=== PATIENT | male | born 1945 | race Caucasian/White ===

== ENCOUNTER 2021-03-02 16:13 | Inpatient (IN) ==
[2021-03-02 17:18] LABS: Hematocrit 31.5 % (37.5-50.1); Hemoglobin 10.2 g/dL (12.9-16.9); Mean Corpuscular HGB Conc 32.4 g/dL (31.6-35.5); Mean Corpuscular Hemoglobin 29.7 pg (28.0-33.3); Mean Corpuscular Volume 91.6 fL (83.0-100.0); Mean Platelet Volume 10.9 fL (9.4-12.4); Platelet Count 232 K/mcL (140-400); Red Blood Count 3.44 M/mcL (4.19-5.50); Red Cell Distribution Width 12.7 % (11.5-14.5)
[2021-03-02 17:19] LABS: Calcium 8.4 mg/dL (8.6-10.3); Potassium 4.3 mEq/L (3.5-5.1)
[2021-03-02 17:20] LABS: Troponin I 0.03 ng/mL (< 0.04)
[2021-03-02 17:29] LABS: Bilirubin,Urine Negative (Negative); Blood,Urine Negative (Negative); Clarity,Urine Clear (Clear); Color,Urine Yellow (Yellow); Glucose,Urine (UA) 100 mg/dL (Normal); Hyaline Casts,Urine Few per lpf (None Seen); Ketones,Urine Negative (Negative); Leukocyte Esterase,Urine Negative (Negative); Mucus,Urine Few per lpf (None-Few); Nitrite,Urine Negative (Negative); PH,Urine 5.5 pH Units (5.0-8.0); Protein,Urine 100 mg/dL (Neg-Trace); RBC,Urine 0-3 per hpf (0-3); Specific Gravity,Urine 1.023 (1.010-1.025); Squamous Epithelial Cell,Urine Few per hpf (None-Few); Urobilinogen,Urine Normal (Normal); WBC,Urine 0-3 per hpf (0-3)
[2021-03-02] MEDS ORDERED: Melatonin 3 MG TABLET PO PRN (18:35)
[2021-03-02] MEDS ORDERED: Ondansetron 4 MG/2 ML VIAL IVP PRN (18:35)
[2021-03-02] MEDS ORDERED: Acetaminophen 325 MG TABLET PO PRN (18:35)
[2021-03-02] MEDS ORDERED: Perflutren Lipid Microsphere 1.3 ML in 0.9 % Sodium Chloride 8.7 ML IVP PRN (18:37)
[2021-03-02 19:01] LABS: Chol/HDL Ratio 5.4 (0-4.9)
[2021-03-02] MEDS ORDERED: Dextrose Gel 15 GM/37.5 ML TUBE PO PRN ×2 (19:10)
[2021-03-02] MEDS ORDERED: *HR* Dextrose 50 % in Water (Vial) 50 ML VIAL IVP PRN (19:10)
[2021-03-02] MEDS ORDERED: D5% in Water 1,000 ML IVC PRN (19:10)
[2021-03-02 19:19] LABS: Estimated Average Glucose 203 mg/dl; Hemoglobin A1C 8.7 %
[2021-03-02] MEDS ORDERED: Ringers Solution, Lactated 1,000 ML IVC SCH (19:30)
[2021-03-02] MEDS: Insulin LISPRO 300 UNITS/3 ML VIAL SUBQ SCH ×2 (20:28→21:13)
[2021-03-02] MEDS: carvediloL 6.25 MG TABLET PO SCH (21:12)
[2021-03-03 03:34] LABS: Hemoglobin 9.5 g/dL (12.9-16.9); Mean Corpuscular HGB Conc 32.8 g/dL (31.6-35.5); Mean Corpuscular Hemoglobin 29.8 pg (28.0-33.3); Mean Corpuscular Volume 90.9 fL (83.0-100.0); Mean Platelet Volume 11.1 fL (9.4-12.4); Platelet Count 222 K/mcL (140-400); Red Blood Count 3.19 M/mcL (4.19-5.50); Red Cell Distribution Width 12.8 % (11.5-14.5); White Blood Count 5.6 K/mcL (4.3-11.1)
[2021-03-03 03:48] LABS: Calcium 8.4 mg/dL (8.6-10.3); Magnesium 1.1 mg/dL (1.6-2.6); Potassium 3.8 mEq/L (3.5-5.1)
[2021-03-03] MEDS: *HR* Enoxaparin 40 MG/0.4 ML SYRINGE SQ SCH (06:11)
[2021-03-03] MEDS ORDERED: hydroCHLOROthiazide 25 MG TABLET PO SCH (09:00)
[2021-03-03] MEDS ORDERED: Aspirin Enteric Coated 81 MG Tablet PO SCH (09:00)
[2021-03-03] MEDS: Insulin LISPRO 300 UNITS/3 ML VIAL SUBQ SCH ×4 (09:05→20:48)
[2021-03-03] MEDS: carvediloL 6.25 MG TABLET PO SCH ×2 (09:05→17:17)
[2021-03-03] MEDS: lisinopriL 20 MG TABLET PO SCH ×2 (09:06→20:48)
[2021-03-04 04:22] LABS: Calcium 9.2 mg/dL (8.6-10.3); Magnesium 1.9 mg/dL (1.6-2.6); Phosphorous 3.7 mg/dL (2.7-4.5); Potassium 4.2 mEq/L (3.5-5.1)
[2021-03-04] MEDS: *HR* Enoxaparin 40 MG/0.4 ML SYRINGE SQ SCH (05:30)
[2021-03-04] MEDS ORDERED: Sodium Bicarbonate 75 MEQ in 0.45 % Sodium Chloride 1,000 ML IVC SCH (08:15)
[2021-03-04] MEDS: Insulin LISPRO 300 UNITS/3 ML VIAL SUBQ SCH ×4 (09:29→20:41)
[2021-03-04] MEDS: Aspirin Enteric Coated 325 MG Tablet PO SCH (09:30)
[2021-03-04] MEDS: carvediloL 6.25 MG TABLET PO SCH ×2 (09:30→17:51)
[2021-03-04] MEDS: calcitrioL 0.25 MCG CAPSULE PO SCH (09:30)
[2021-03-04] MEDS ORDERED: amLODIPine 5 MG TABLET PO SCH (12:00)
[2021-03-04] MEDS ORDERED: Insulin LISPRO 300 UNITS/3 ML VIAL SUBQ SCH (12:00)
[2021-03-04] MEDS ORDERED: Insulin DETEMIR 100 UNIT/ML X5UNITS SUBQ SCH (21:00)
[2021-03-05] MEDS: *HR* Enoxaparin 40 MG/0.4 ML SYRINGE SQ SCH (05:15)
[2021-03-05 06:42] LABS: Calcium 9.3 mg/dL (8.6-10.3); Magnesium 1.7 mg/dL (1.6-2.6); Phosphorous 4.5 mg/dL (2.7-4.5); Potassium 3.7 mEq/L (3.5-5.1)
[2021-03-05 07:55] VITALS: BP 182/67
[2021-03-05] MEDS: Insulin LISPRO 300 UNITS/3 ML VIAL SUBQ SCH (08:07)
[2021-03-05] MEDS: calcitrioL 0.25 MCG CAPSULE PO SCH (08:07)
[2021-03-05] MEDS: Aspirin Enteric Coated 325 MG Tablet PO SCH (08:07)
[2021-03-05] MEDS: carvediloL 6.25 MG TABLET PO SCH (08:07)
[2021-03-05] MEDS ORDERED: amLODIPine 5 MG TABLET PO SCH (09:00)
[2021-03-06] MEDS ORDERED: *HR* Enoxaparin 30 MG/0.3 ML SYRINGE SQ SCH (06:00)
== END 2021-03-05 11:20 | disposition home or self-care (01) | DRG 65 ==
LOC: 3BNU 16:13 → EMEROOARM 16:13 → SUATTDRO 18:35 → 3BNU 19:54
PROVIDERS: ADMIT Internal Medicine; ATTEND Internal Medicine

== ENCOUNTER 2021-10-30 16:06 | Inpatient (IN) ==
[2021-10-30] MEDS ORDERED: Ondansetron 4 MG/2 ML VIAL IVP ONE (18:10)
[2021-10-30] MEDS ORDERED: 0.9 % Sodium Chloride 500 ML IV ONE (18:11)
[2021-10-30 19:03] LABS: Influenza A PCR Negative (Negative); Influenza B PCR Negative (Negative); Resp. Syncytial Virus PCR Negative (Negative)
[2021-10-30 19:08] LABS: SARS-CoV-2 by PCR (In House) Positive (Negative)
[2021-10-30 19:48] LABS: Hematocrit 29.8 % (37.5-50.1); Hemoglobin 9.7 g/dL (12.9-16.9); Immature Granulocytes % 0.6 % (0-4); Immature Platelets 3.7 % (1.1-6.1); Lymphocytes # 0.6 K/mcL (0.6-4.6); Mean Corpuscular HGB Conc 32.6 g/dL (31.6-35.5); Mean Corpuscular Hemoglobin 28.9 pg (28.0-33.3); Mean Corpuscular Volume 88.7 fL (83.0-100.0); Mean Platelet Volume 11.3 fL (9.4-12.4); Monocytes # 0.3 K/mcL (0.0-1.3); Monocytes % 9.1 %; Neutrophils # 2.5 K/mcL (1.6-8.9); Platelet Count 155 K/mcL (140-400); Red Blood Count 3.36 M/mcL (4.19-5.50); Segmented Neutrophils % 73.3 %; White Blood Count 3.4 K/mcL (4.3-11.1)
[2021-10-30 20:10] LABS: Albumin 3.2 g/dL (3.5-5.7); Bilirubin,Direct 0.2 mg/dL (0.0-0.2); Bilirubin,Indirect 0.4 mg/dL (0.0-1.0); Bilirubin,Total 0.6 mg/dL (0.3-1.0); Calcium 8.3 mg/dL (8.6-10.3); Globulin 3.1 g/dL (2.4-3.5); Magnesium 1.2 mg/dL (1.6-2.6); Phosphorous 4.2 mg/dL (2.7-4.5); Potassium 3.7 mEq/L (3.5-5.1); Total Protein 6.3 g/dL (6.4-8.9); Troponin I 0.32 ng/mL (< 0.04)
[2021-10-30] MEDS ORDERED: Aspirin 325 MG TABLET PO ONE (20:14)
[2021-10-30 20:18] LABS: Platelet Estimate Normal (Normal)
[2021-10-30] MEDS ORDERED: *HR* Heparin 5,000 UNIT/ML VIAL IVP PRN ×2 (20:25)
[2021-10-30] MEDS ORDERED: *HR* Heparin 5,000 UNIT/ML VIAL IVP ONE (20:25)
[2021-10-30] MEDS ORDERED: Naloxone 0.4 MG/ML INJ IVP PRN (20:57)
[2021-10-30] MEDS ORDERED: *HR* Promethazine 25 MG/ML VIAL IM PRN (20:57)
[2021-10-30] MEDS ORDERED: Saliva Stimulant 44.3ml BOTTLE PO PRN (21:01)
[2021-10-30] MEDS ORDERED: Artificial Tears SOLN 15 ML BOTTLE BOTH EYES PRN (21:01)
[2021-10-30] MEDS ORDERED: Saline Nasal Spray 44 ML BOTTLE NS PRN (21:01)
[2021-10-30] MEDS ORDERED: Chloraseptic Spray 177 ML BOTTLE MM PRN (21:01)
[2021-10-30 21:35] LABS: Bilirubin,Urine Negative (Negative); Blood,Urine Moderate (Negative); Clarity,Urine Clear (Clear); Color,Urine Yellow (Yellow); Glucose,Urine (UA) Normal (Normal); Ketones,Urine Negative (Negative); Leukocyte Esterase,Urine Negative (Negative); Nitrite,Urine Negative (Negative); PH,Urine 5.5 pH Units (5.0-8.0); Protein,Urine >=300 mg/dL (Neg-Trace); Specific Gravity,Urine >= 1.030 (1.010-1.025); Urobilinogen,Urine Normal (Normal)
[2021-10-30 21:39] LABS: Hyaline Casts,Urine Moderate per lpf (None Seen); Mucus,Urine Few per lpf (None-Few); RBC,Urine 0-3 per hpf (0-3); WBC,Urine 0-3 per hpf (0-3)
[2021-10-30] MEDS ORDERED: Dextrose Gel 15 GM/37.5 ML TUBE PO PRN ×2 (21:43)
[2021-10-30] MEDS ORDERED: D5% in Water 1,000 ML IVC PRN (21:43)
[2021-10-30] MEDS: Heparin 25,000UNIT/250ML 1/2NS 25,000 UNIT/250 ML IV.SOLN IVC SCH (21:45)
[2021-10-30] MEDS ORDERED: Perflutren Lipid Microsphere 1.3 ML in 0.9 % Sodium Chloride 8.7 ML IVP PRN (22:49)
[2021-10-30] MEDS ORDERED: Furosemide 40 MG/4 ML VIAL IVP ONE (22:51)
[2021-10-31] MEDS: Ipratropium 1 PUFF INHALER IH SCH ×6 (00:25→19:55)
[2021-10-31 01:07] LABS: Basophils % 0.3 %; Hematocrit 27.7 % (37.5-50.1); Hemoglobin 8.7 g/dL (12.9-16.9); Immature Granulocytes % 0.3 % (0-4); Lymphocytes # 0.6 K/mcL (0.6-4.6); Lymphocytes % 18.7 %; Mean Corpuscular HGB Conc 31.4 g/dL (31.6-35.5); Mean Corpuscular Hemoglobin 28.4 pg (28.0-33.3); Mean Corpuscular Volume 90.5 fL (83.0-100.0); Mean Platelet Volume 11.3 fL (9.4-12.4); Monocytes # 0.3 K/mcL (0.0-1.3); Monocytes % 9.7 %; Neutrophils # 2.4 K/mcL (1.6-8.9); Platelet Count 147 K/mcL (140-400); Red Blood Count 3.06 M/mcL (4.19-5.50); Red Cell Distribution Width 14.1 % (11.5-14.5); White Blood Count 3.3 K/mcL (4.3-11.1)
[2021-10-31 01:14] LABS: INR 1.2
[2021-10-31 01:31] LABS: Albumin/Globulin Ratio 1.1 (1.1-2.2); Bilirubin,Total 0.6 mg/dL (0.3-1.0); Calcium 7.9 mg/dL (8.6-10.3); Chol/HDL Ratio 4.4 (0-4.9); Globulin 2.8 g/dL (2.4-3.5); Magnesium 1.5 mg/dL (1.6-2.6); Phosphorous 4.1 mg/dL (2.7-4.5); Potassium 3.3 mEq/L (3.5-5.1); Total Protein 5.8 g/dL (6.4-8.9); Troponin I 0.31 ng/mL (< 0.04)
[2021-10-31 02:48] LABS: Thyroid Stimulating Hormone 1.08 mcIU/mL (0.340-5.600)
[2021-10-31] MEDS: hydrALAZINE 25 MG TABLET PO SCH ×2 (05:48→13:18)
[2021-10-31] MEDS ORDERED: carvediloL 6.25 MG TABLET PO SCH (08:00)
[2021-10-31 08:20] LABS: Estimated Average Glucose 217 mg/dl; Hemoglobin A1C 9.2 %
[2021-10-31] MEDS: Insulin LISPRO 300 UNITS/3 ML VIAL SUBQ SCH ×3 (11:17→18:53)
[2021-10-31] MEDS: carvediloL 6.25 MG TABLET PO SCH ×2 (11:24→16:11)
[2021-10-31] MEDS: Doxycycline 100 MG CAPSULE PO SCH ×2 (11:24→21:52)
[2021-10-31] MEDS: Multivit/Ca/Min/Fe/FA 1 TAB TABLET PO SCH (11:24)
[2021-10-31] MEDS: Aspirin 81 MG TAB.CHEW PO SCH (11:25)
[2021-10-31] MEDS: cefTRIAXone 1,000 MG in Water for inj. (sterile) 10 ML IVP SCH (11:25)
[2021-10-31] MEDS: Furosemide 20 MG/2 ML VIAL IVP SCH ×2 (11:25→16:11)
[2021-10-31] MEDS: Cholecalciferol (D-3) 1,000 UNIT (25MCG) TABLET PO SCH (11:25)
[2021-10-31] MEDS: Albumin 25% 25gram/100mL 25 GM/100 ML IV.SOLN IVPB SCH ×2 (13:14→21:51)
[2021-10-31] MEDS ORDERED: 0.9 % Sodium Chloride 1,000 ML IVC SCH (14:45)
[2021-10-31] MEDS: Acetaminophen 325 MG TABLET PO PRN (16:11)
[2021-10-31] MEDS: Chlorhexidine Rinse 15 ML MOUTHWASH MM SCH ×2 (19:50→21:52)
[2021-11-01] MEDS: Ipratropium 1 PUFF INHALER IH SCH ×7 (00:18→23:37)
[2021-11-01] MEDS: hydrALAZINE 25 MG TABLET PO SCH ×4 (03:09→21:23)
[2021-11-01] MEDS: *HR* HYDROcodone/Acet 5/325 mg TABLET PO PRN ×2 (03:45→21:23)
[2021-11-01] MEDS: *HR* Dextrose 50 % in Water (Syg) 50 ML SYRINGE IVP PRN (05:40)
[2021-11-01] MEDS: Heparin 25,000 UNIT/250 ML 25,000 UNIT/250 ML IV.SOLN IVC SCH (05:44)
[2021-11-01 07:32] LABS: Heparin anti-factor XA UFH 0.69 IU/mL (0.30-0.70)
[2021-11-01 07:49] LABS: Hematocrit 24.1 % (37.5-50.1); Hemoglobin 7.8 g/dL (12.9-16.9); Mean Corpuscular HGB Conc 32.4 g/dL (31.6-35.5); Mean Corpuscular Hemoglobin 28.7 pg (28.0-33.3); Mean Corpuscular Volume 88.6 fL (83.0-100.0); Mean Platelet Volume 11.1 fL (9.4-12.4); Platelet Count 164 K/mcL (140-400); Red Blood Count 2.72 M/mcL (4.19-5.50); Red Cell Distribution Width 14.2 % (11.5-14.5); White Blood Count 4.1 K/mcL (4.3-11.1)
[2021-11-01 07:54] LABS: Potassium 3.1 mEq/L (3.5-5.1)
[2021-11-01] MEDS: Doxycycline 100 MG CAPSULE PO SCH ×2 (09:26→21:23)
[2021-11-01] MEDS: Insulin LISPRO 300 UNITS/3 ML VIAL SUBQ SCH ×3 (09:26→16:42)
[2021-11-01] MEDS: Multivit/Ca/Min/Fe/FA 1 TAB TABLET PO SCH (09:26)
[2021-11-01] MEDS: Cholecalciferol (D-3) 1,000 UNIT (25MCG) TABLET PO SCH (09:27)
[2021-11-01] MEDS: Aspirin 81 MG TAB.CHEW PO SCH (09:27)
[2021-11-01] MEDS: carvediloL 6.25 MG TABLET PO SCH ×2 (09:27→16:28)
[2021-11-01] MEDS: Chlorhexidine Rinse 15 ML MOUTHWASH MM SCH ×2 (09:27→21:38)
[2021-11-01] MEDS: cefTRIAXone 1,000 MG in Water for inj. (sterile) 10 ML IVP SCH (09:27)
[2021-11-01 11:25] LABS: Folate 18.9 ng/mL (3.0-16.0)
[2021-11-01] MEDS ORDERED: Iron Sucrose Complex 400 MG in 0.9 % Sodium Chloride 250 ML IVPB ONE (12:28)
[2021-11-01] MEDS: Acetaminophen 325 MG TABLET PO PRN (14:00)
[2021-11-01 15:26] LABS: Heparin anti-factor XA UFH 0.62 IU/mL (0.30-0.70)
[2021-11-01 15:27] LABS: INR 1.2; Prothrombin Time 13.1 Seconds (9.4-12.1)
[2021-11-01] MEDS: Albumin 25% 25gram/100mL 25 GM/100 ML IV.SOLN IVPB SCH ×2 (16:28→21:24)
[2021-11-01] MEDS ORDERED: Warfarin perPT PO PRN (18:00)
[2021-11-01] MEDS ORDERED: *HR* Warfarin 5 MG TABLET PO ONE (18:00)
[2021-11-01] MEDS: Melatonin 3 MG TABLET PO PRN (21:23)
[2021-11-02] MEDS: Ipratropium 1 PUFF INHALER IH SCH ×6 (03:30→23:45)
[2021-11-02] MEDS: Albumin 25% 25gram/100mL 25 GM/100 ML IV.SOLN IVPB SCH (05:43)
[2021-11-02] MEDS: *HR* HYDROcodone/Acet 5/325 mg TABLET PO PRN ×3 (05:43→22:01)
[2021-11-02] MEDS: hydrALAZINE 25 MG TABLET PO SCH ×3 (05:43→19:54)
[2021-11-02 06:37] LABS: Hematocrit 24.2 % (37.5-50.1); Hemoglobin 7.4 g/dL (12.9-16.9); Mean Corpuscular HGB Conc 30.6 g/dL (31.6-35.5); Mean Corpuscular Hemoglobin 27.7 pg (28.0-33.3); Mean Corpuscular Volume 90.6 fL (83.0-100.0); Platelet Count 183 K/mcL (140-400); Red Blood Count 2.67 M/mcL (4.19-5.50); Red Cell Distribution Width 14.5 % (11.5-14.5); White Blood Count 5.5 K/mcL (4.3-11.1)
[2021-11-02 06:47] LABS: INR 1.3; Prothrombin Time 14.7 Seconds (9.4-12.1)
[2021-11-02] MEDS: cefTRIAXone 1,000 MG in Water for inj. (sterile) 10 ML IVP SCH (09:01)
[2021-11-02] MEDS: Multivit/Ca/Min/Fe/FA 1 TAB TABLET PO SCH (09:02)
[2021-11-02] MEDS: Aspirin 81 MG TAB.CHEW PO SCH (09:02)
[2021-11-02] MEDS: Cholecalciferol (D-3) 1,000 UNIT (25MCG) TABLET PO SCH (09:02)
[2021-11-02] MEDS: Doxycycline 100 MG CAPSULE PO SCH ×2 (09:02→19:54)
[2021-11-02] MEDS: carvediloL 6.25 MG TABLET PO SCH ×2 (09:02→17:15)
[2021-11-02] MEDS: Chlorhexidine Rinse 15 ML MOUTHWASH MM SCH (09:03)
[2021-11-02] MEDS: Insulin LISPRO 300 UNITS/3 ML VIAL SUBQ SCH ×3 (09:09→17:19)
[2021-11-02 09:55] LABS: Calcium 8.8 mg/dL (8.6-10.3); Potassium 3.1 mEq/L (3.5-5.1)
[2021-11-02] MEDS ORDERED: *HR* Warfarin 2.5 MG TABLET PO ONE (18:00)
[2021-11-02] MEDS: Acetaminophen 325 MG TABLET PO PRN (19:54)
[2021-11-02] MEDS: Melatonin 3 MG TABLET PO PRN (19:54)
[2021-11-03 02:46] LABS: INR 2.4; Prothrombin Time 26.3 Seconds (9.4-12.1)
[2021-11-03] MEDS: *HR* HYDROcodone/Acet 5/325 mg TABLET PO PRN ×2 (02:53→07:56)
[2021-11-03] MEDS: Ipratropium 1 PUFF INHALER IH SCH ×6 (04:02→23:07)
[2021-11-03 04:06] LABS: Albumin/Globulin Ratio 1.6 (1.1-2.2); Bilirubin,Total 0.9 mg/dL (0.3-1.0); Calcium 9.1 mg/dL (8.6-10.3); Globulin 2.5 g/dL (2.4-3.5); Potassium 4.8 mEq/L (3.5-5.1); Total Protein 6.5 g/dL (6.4-8.9)
[2021-11-03 04:41] LABS: Basophils % 0.1 %; Hematocrit 22.9 % (37.5-50.1); Hemoglobin 7.2 g/dL (12.9-16.9); Immature Granulocytes % 2.3 % (0-4); Lymphocytes # 0.9 K/mcL (0.6-4.6); Mean Corpuscular HGB Conc 31.4 g/dL (31.6-35.5); Mean Corpuscular Hemoglobin 28.8 pg (28.0-33.3); Mean Corpuscular Volume 91.6 fL (83.0-100.0); Mean Platelet Volume 11.2 fL (9.4-12.4); Monocytes # 0.6 K/mcL (0.0-1.3); Nucleated Red Blood Cells 0.3 /100 WBC (0); Platelet Count 290 K/mcL (140-400); Red Cell Distribution Width 14.5 % (11.5-14.5); Segmented Neutrophils % 82.6 %
[2021-11-03] MEDS ORDERED: 0.9 % Sodium Chloride 500 ML IVC ONE (04:52)
[2021-11-03 04:53] LABS: Neutrophils # 8.3 K/mcL (1.6-8.9)
[2021-11-03] MEDS ORDERED: 0.9 % Sodium Chloride 500 ML ONE (05:02)
[2021-11-03 05:12] LABS: Burr Cells 1+ (Not Present); Platelet Estimate Normal (Normal); Poikilocytosis 1+ (Not Present)
[2021-11-03] MEDS ORDERED: *HR* HYDROmorphone (PF) 1 MG/ML SYRINGE IVP PRN (05:27)
[2021-11-03] MEDS: hydrALAZINE 25 MG TABLET PO SCH ×3 (05:31→21:24)
[2021-11-03] MEDS: Acetaminophen 325 MG TABLET PO PRN (05:31)
[2021-11-03] MEDS: *HR* HYDROmorphone (PF) 1 MG/ML SYRINGE IVP PRN ×2 (06:05→23:14)
[2021-11-03] MEDS: Heparin 25,000 UNIT/250 ML 25,000 UNIT/250 ML IV.SOLN IVC SCH ×2 (07:31→07:32)
[2021-11-03] MEDS: Heparin 25,000UNIT/250ML 1/2NS 25,000 UNIT/250 ML IV.SOLN IVC SCH (07:37)
[2021-11-03] MEDS: Insulin LISPRO 300 UNITS/3 ML VIAL SUBQ SCH ×3 (07:54→17:14)
[2021-11-03] MEDS: cefTRIAXone 1,000 MG in Water for inj. (sterile) 10 ML IVP SCH (07:55)
[2021-11-03] MEDS: Cholecalciferol (D-3) 1,000 UNIT (25MCG) TABLET PO SCH (08:07)
[2021-11-03] MEDS: Aspirin 81 MG TAB.CHEW PO SCH (08:08)
[2021-11-03] MEDS: Multivit/Ca/Min/Fe/FA 1 TAB TABLET PO SCH (08:08)
[2021-11-03] MEDS: carvediloL 6.25 MG TABLET PO SCH ×2 (08:08→16:36)
[2021-11-03] MEDS: Doxycycline 100 MG CAPSULE PO SCH ×2 (08:08→21:23)
[2021-11-03] MEDS ORDERED: 0.9 % Sodium Chloride 1,000 ML IVC ONE (16:45)
[2021-11-03] MEDS: Piperacillin/Tazobactam 3.375 GM in 0.9 % Sodium Chloride Mini Bag 100 ML IVPB SCH (17:15)
[2021-11-04] MEDS: Piperacillin/Tazobactam 3.375 GM in 0.9 % Sodium Chloride Mini Bag 100 ML IVPB SCH ×3 (01:17→20:11)
[2021-11-04] MEDS: Ipratropium 1 PUFF INHALER IH SCH ×6 (03:11→23:32)
[2021-11-04 04:05] LABS: Prothrombin Time 42.2 Seconds (9.4-12.1)
[2021-11-04 04:06] LABS: INR 3.8
[2021-11-04] MEDS: hydrALAZINE 25 MG TABLET PO SCH ×4 (06:19→23:16)
[2021-11-04] MEDS: *HR* HYDROmorphone (PF) 1 MG/ML SYRINGE IVP PRN ×4 (07:48→23:29)
[2021-11-04] MEDS: Aspirin 81 MG TAB.CHEW PO SCH (07:59)
[2021-11-04] MEDS: Doxycycline 100 MG CAPSULE PO SCH ×2 (07:59→23:16)
[2021-11-04] MEDS: Insulin LISPRO 300 UNITS/3 ML VIAL SUBQ SCH ×3 (07:59→16:32)
[2021-11-04] MEDS: Cholecalciferol (D-3) 1,000 UNIT (25MCG) TABLET PO SCH (08:00)
[2021-11-04] MEDS: Multivit/Ca/Min/Fe/FA 1 TAB TABLET PO SCH (08:00)
[2021-11-04] MEDS: carvediloL 6.25 MG TABLET PO SCH ×2 (08:07→16:32)
[2021-11-04 09:39] LABS: Basophils % 0.1 %; Hematocrit 21.3 % (37.5-50.1); Hemoglobin 6.5 g/dL (12.9-16.9); Immature Granulocytes % 1.8 % (0-4); Lymphocytes # 0.5 K/mcL (0.6-4.6); Lymphocytes % 3.7 %; Mean Corpuscular HGB Conc 30.5 g/dL (31.6-35.5); Mean Corpuscular Hemoglobin 27.7 pg (28.0-33.3); Mean Corpuscular Volume 90.6 fL (83.0-100.0); Mean Platelet Volume 10.8 fL (9.4-12.4); Monocytes # 0.8 K/mcL (0.0-1.3); Monocytes % 5.8 %; Neutrophils # 12.6 K/mcL (1.6-8.9); Nucleated Red Blood Cells 0.5 /100 WBC (0); Platelet Count 310 K/mcL (140-400); Red Blood Count 2.35 M/mcL (4.19-5.50); Red Cell Distribution Width 14.8 % (11.5-14.5); Segmented Neutrophils % 88.6 %; White Blood Count 14.2 K/mcL (4.3-11.1)
[2021-11-04 09:59] LABS: Calcium 9.1 mg/dL (8.6-10.3); Potassium 4.5 mEq/L (3.5-5.1)
[2021-11-04] MEDS ORDERED: D5% in Water 1,000 ML IVC SCH (12:15)
[2021-11-04] MEDS ORDERED: D5% in Water 500 ML IVC SCH (12:45)
[2021-11-04] MEDS: 0.9 % Sodium Chloride 1,000 ML ONE ×2 (13:32→13:42)
[2021-11-04] MEDS ORDERED: 0.9 % Sodium Chloride 250 ML ONE ×2 (14:25→17:32)
[2021-11-05] MEDS: Ipratropium 1 PUFF INHALER IH SCH ×6 (03:33→23:55)
[2021-11-05] MEDS: Piperacillin/Tazobactam 3.375 GM in 0.9 % Sodium Chloride Mini Bag 100 ML IVPB SCH ×2 (05:38→14:07)
[2021-11-05] MEDS: hydrALAZINE 25 MG TABLET PO SCH ×3 (06:47→20:07)
[2021-11-05] MEDS ORDERED: *HR* LORazepam 2 MG/ML VIAL IVP ONE ×2 (09:59→10:37)
[2021-11-05] MEDS: Furosemide 40 MG/4 ML VIAL IVP ONE ×2 (10:13→13:56)
[2021-11-05] MEDS ORDERED: Morphine Sulfate 2 MG/ML SYRINGE IVP ONE (10:15)
[2021-11-05 10:34] LABS: VBG HCO3 13 mEq/L (21-27); VBG PCO2 27 mmHg (41-51); VBG PH 7.29 pH Units (7.32-7.42); VBG PO2 41 mmHg (25-50)
[2021-11-05 10:34] LABS: ABG Base Excess -12 mEq/L (-2 to 3); ABG HCO3 11 mEq/L (21-27); ABG Oxygen Saturation 97 % (95-98); ABG PCO2 18 mmHg (35-45); ABG PH 7.39 pH Units (7.32-7.45); ABG PO2 83 mmHg (85-104); ABG TCO2 12 mEq/L (20-26); Blood Gas Modality BiLevel
[2021-11-05 10:38] LABS: Basophils # 0.1 K/mcL (0.0-0.2); Basophils % 0.3 %; Hematocrit 29.1 % (37.5-50.1); Immature Granulocytes % 2.9 % (0-4); Lymphocytes # 0.8 K/mcL (0.6-4.6); Mean Corpuscular HGB Conc 30.9 g/dL (31.6-35.5); Mean Corpuscular Hemoglobin 28.8 pg (28.0-33.3); Mean Platelet Volume 11.4 fL (9.4-12.4); Monocytes # 1.1 K/mcL (0.0-1.3); Monocytes % 6.1 %; Neutrophils # 16.2 K/mcL (1.6-8.9); Nucleated Red Blood Cells 1.9 /100 WBC (0); Platelet Count 399 K/mcL (140-400); Red Blood Count 3.13 M/mcL (4.19-5.50); Red Cell Distribution Width 15.3 % (11.5-14.5); Segmented Neutrophils % 86.7 %; White Blood Count 18.6 K/mcL (4.3-11.1)
[2021-11-05 10:55] LABS: Calcium 9.5 mg/dL (8.6-10.3); Magnesium 2.3 mg/dL (1.6-2.6); Phosphorous 6.1 mg/dL (2.7-4.5); Potassium 5.4 mEq/L (3.5-5.1)
[2021-11-05] MEDS ORDERED: Insulin Human Regular 10 UNIT in 0.9 % Sodium Chloride 10 ML IV ONE (11:04)
[2021-11-05 11:09] LABS: INR 4.4; Prothrombin Time 48.4 Seconds (9.4-12.1)
[2021-11-05] MEDS ORDERED: Perflutren Lipid Microsphere 1.3 ML in 0.9 % Sodium Chloride 8.7 ML IVP PRN (11:18)
[2021-11-05] MEDS ORDERED: Furosemide 40 MG/4 ML VIAL IVP ONE (11:23)
[2021-11-05] MEDS: Insulin LISPRO 300 UNITS/3 ML VIAL SUBQ SCH ×3 (11:48→16:04)
[2021-11-05] MEDS: D5% in Water 1,000 ML IVC SCH ×2 (11:51→20:07)
[2021-11-05 12:49] LABS: Troponin I 7.63 ng/mL (< 0.04)
[2021-11-05] MEDS: Aspirin 81 MG TAB.CHEW PO SCH (13:16)
[2021-11-05] MEDS: carvediloL 6.25 MG TABLET PO SCH ×2 (13:16→17:28)
[2021-11-05] MEDS: Cholecalciferol (D-3) 1,000 UNIT (25MCG) TABLET PO SCH (13:17)
[2021-11-05] MEDS: Multivit/Ca/Min/Fe/FA 1 TAB TABLET PO SCH (13:17)
[2021-11-05] MEDS: Doxycycline 100 MG CAPSULE PO SCH ×2 (13:17→20:09)
[2021-11-05] MEDS ORDERED: Morphine Sulfate 2 MG/ML SYRINGE IVP PRN (14:00)
[2021-11-05 14:24] LABS: Albumin 3.9 g/dL (3.5-5.7); Albumin/Globulin Ratio 1.3 (1.1-2.2); Bilirubin,Direct 0.3 mg/dL (0.0-0.2); Bilirubin,Indirect 0.7 mg/dL (0.0-1.0); Total Protein 6.9 g/dL (6.4-8.9)
[2021-11-05] MEDS ORDERED: SODIUM ZIRCONIUM CYCLOSILICATE 5 GM POWD.PACK PO ONE (15:18)
[2021-11-05] MEDS: *HR* LORazepam 2 MG/ML VIAL IVP PRN ×2 (17:01→21:36)
[2021-11-06 01:49] LABS: Sodium, Urine 104.6 mEq/L
[2021-11-06 02:28] LABS: Basophils % 0.2 %; Hematocrit 28.2 % (37.5-50.1); Hemoglobin 9.2 g/dL (12.9-16.9); Immature Granulocytes % 1.9 % (0-4); Lymphocytes # 0.6 K/mcL (0.6-4.6); Lymphocytes % 3.6 %; Mean Corpuscular HGB Conc 32.6 g/dL (31.6-35.5); Mean Corpuscular Hemoglobin 29.5 pg (28.0-33.3); Mean Corpuscular Volume 90.4 fL (83.0-100.0); Mean Platelet Volume 11.3 fL (9.4-12.4); Monocytes # 0.8 K/mcL (0.0-1.3); Monocytes % 4.9 %; Neutrophils # 15.2 K/mcL (1.6-8.9); Nucleated Red Blood Cells 2.4 /100 WBC (0); Platelet Count 319 K/mcL (140-400); Red Blood Count 3.12 M/mcL (4.19-5.50); Red Cell Distribution Width 14.9 % (11.5-14.5); Segmented Neutrophils % 89.4 %
[2021-11-06 02:46] LABS: Prothrombin Time 59.5 Seconds (9.4-12.1)
[2021-11-06 02:47] LABS: Blood Urea Nitrogen > 130 mg/dL (8-23); Calcium 9.3 mg/dL (8.6-10.3); Carbon Dioxide 20 mEq/L (23-29); Chloride 114 mEq/L (98-107); Glucose 348 mg/dL (70-105); INR 5.4; Magnesium 2.4 mg/dL (1.6-2.6); Phosphorous 4.5 mg/dL (2.7-4.5); Potassium 4.6 mEq/L (3.5-5.1); Sodium 151 mEq/L (136-145); eGFR For African Americans 18 (> 60); eGFR For Non-African Americans 15 (> 60)
[2021-11-06 03:34] LABS: Protein/Creatinine Ratio,Urine 1.64 mg/mg (0.00-0.20)
[2021-11-06] MEDS: Ipratropium 1 PUFF INHALER IH SCH ×6 (03:56→23:38)
[2021-11-06 04:18] LABS: ABG Base Excess 0 mEq/L (-2 to 3); ABG HCO3 20 mEq/L (21-27); ABG Oxygen Saturation 97 % (95-98); ABG PCO2 18 mmHg (35-45); ABG PH 7.65 pH Units (7.32-7.45); ABG PO2 65 mmHg (85-104); ABG TCO2 20 mEq/L (20-26); Blood Gas Modality CPAP/PS
[2021-11-06] MEDS: D5% in Water 1,000 ML IVC SCH ×3 (05:37→19:02)
[2021-11-06] MEDS: hydrALAZINE 25 MG TABLET PO SCH (05:37)
[2021-11-06] MEDS: *HR* LORazepam 2 MG/ML VIAL IVP PRN (06:01)
[2021-11-06] MEDS: Piperacillin/Tazobactam 3.375 GM in 0.9 % Sodium Chloride Mini Bag 100 ML IVPB SCH (06:02)
[2021-11-06] MEDS: carvediloL 6.25 MG TABLET PO SCH (09:32)
[2021-11-06] MEDS: Multivit/Ca/Min/Fe/FA 1 TAB TABLET PO SCH (09:33)
[2021-11-06] MEDS: Doxycycline 100 MG CAPSULE PO SCH (09:33)
[2021-11-06] MEDS: Aspirin 81 MG TAB.CHEW PO SCH (09:33)
[2021-11-06] MEDS: Cholecalciferol (D-3) 1,000 UNIT (25MCG) TABLET PO SCH (09:33)
[2021-11-06] MEDS: Insulin LISPRO 300 UNITS/3 ML VIAL SUBQ SCH ×3 (09:42→18:19)
[2021-11-06] MEDS: Dexmedetomidine HCl 400 MCG/100 ML MLS IVC SCH (11:27)
[2021-11-06] MEDS ORDERED: 0.9 % Sodium Chloride 250 ML ONE (20:13)
[2021-11-07] MEDS: Ipratropium 1 PUFF INHALER IH SCH ×6 (03:37→23:46)
[2021-11-07] MEDS: D5% in Water 1,000 ML IVC SCH ×3 (04:58→20:54)
[2021-11-07 05:56] LABS: Basophils % 0.2 %; Hematocrit 26.8 % (37.5-50.1); Hemoglobin 8.5 g/dL (12.9-16.9); Immature Granulocytes % 2.6 % (0-4); Lymphocytes # 0.5 K/mcL (0.6-4.6); Lymphocytes % 3.5 %; Mean Corpuscular HGB Conc 31.7 g/dL (31.6-35.5); Mean Corpuscular Hemoglobin 29.6 pg (28.0-33.3); Mean Corpuscular Volume 93.4 fL (83.0-100.0); Mean Platelet Volume 11.3 fL (9.4-12.4); Monocytes # 0.7 K/mcL (0.0-1.3); Monocytes % 4.3 %; Nucleated Red Blood Cells 2.3 /100 WBC (0); Platelet Count 254 K/mcL (140-400); Red Blood Count 2.87 M/mcL (4.19-5.50); Red Cell Distribution Width 15.1 % (11.5-14.5); Segmented Neutrophils % 89.4 %; White Blood Count 15.6 K/mcL (4.3-11.1)
[2021-11-07 06:04] LABS: INR 3.7; Prothrombin Time 41.2 Seconds (9.4-12.1)
[2021-11-07 06:19] LABS: Blood Urea Nitrogen > 130 mg/dL (8-23); Calcium 9.3 mg/dL (8.6-10.3); Carbon Dioxide 18 mEq/L (23-29); Chloride 114 mEq/L (98-107); Glucose 455 mg/dL (70-105); Magnesium 2.3 mg/dL (1.6-2.6); Potassium 4.2 mEq/L (3.5-5.1); Sodium 147 mEq/L (136-145); eGFR For African Americans 19 (> 60); eGFR For Non-African Americans 16 (> 60)
[2021-11-07] MEDS: Insulin LISPRO 300 UNITS/3 ML VIAL SUBQ SCH (06:33)
[2021-11-07] MEDS: Piperacillin/Tazobactam 3.375 GM in 0.9 % Sodium Chloride Mini Bag 100 ML IVPB SCH ×3 (07:00→18:16)
[2021-11-07] MEDS: Doxycycline 100 MG CAPSULE PO SCH ×3 (07:10→19:42)
[2021-11-07] MEDS: hydrALAZINE 25 MG TABLET PO SCH ×5 (07:10→19:42)
[2021-11-07] MEDS: carvediloL 6.25 MG TABLET PO SCH ×3 (07:10→18:13)
[2021-11-07] MEDS ORDERED: *HR* Dextrose 50 % in Water (Syg) 50 ML SYRINGE IVP PRN ×2 (07:21→23:50)
[2021-11-07] MEDS: Aspirin 81 MG TAB.CHEW PO SCH (07:23)
[2021-11-07] MEDS: Cholecalciferol (D-3) 1,000 UNIT (25MCG) TABLET PO SCH (07:23)
[2021-11-07] MEDS: Multivit/Ca/Min/Fe/FA 1 TAB TABLET PO SCH (07:23)
[2021-11-07 08:07] LABS: ABG Base Excess -4 mEq/L (-2 to 3); ABG HCO3 18 mEq/L (21-27); ABG Oxygen Saturation 92 % (95-98); ABG PCO2 23 mmHg (35-45); ABG PH 7.51 pH Units (7.32-7.45); ABG PO2 54 mmHg (85-104); ABG TCO2 19 mEq/L (20-26); Blood Gas Modality CPAP/PS
[2021-11-07] MEDS: Dexmedetomidine HCl 400 MCG/100 ML MLS IVC SCH ×2 (09:28→20:52)
[2021-11-07] MEDS ORDERED: Insulin DETEMIR 100 UNIT/ML X5UNITS SUBQ SCH (21:00)
[2021-11-07 23:41] LABS: Calcium 9.4 mg/dL (8.6-10.3); Carbon Dioxide 17 mEq/L (23-29); Chloride 117 mEq/L (98-107); Glucose 211 mg/dL (70-105); Potassium 3.4 mEq/L (3.5-5.1); Sodium 149 mEq/L (136-145); eGFR For African Americans 21 (> 60); eGFR For Non-African Americans 17 (> 60)
[2021-11-07 23:42] LABS: Blood Urea Nitrogen > 130 mg/dL (8-23)
[2021-11-07] MEDS ORDERED: 0.45 % Sodium Chloride w/KCl 20 MEQ/1,000 ML MLS IVC SCH (23:45)
[2021-11-07] MEDS ORDERED: D5% in 0.45% NACL w KCl 20 MEQ/1,000 ML MLS IVC PRN (23:50)
[2021-11-07] MEDS ORDERED: Insulin Regular, Human 100 UNIT/ML IV PRN (23:50)
[2021-11-08] MEDS ORDERED: 0.45 % Sodium Chloride w/KCl 20 MEQ/1,000 ML MLS IVC PRN (00:04)
[2021-11-08] MEDS ORDERED: Insulin LISPRO 300 UNITS/3 ML VIAL SUBQ PRN ×2 (00:10→00:21)
[2021-11-08] MEDS ORDERED: *HR* Dextrose 50 % in Water (Syg) 50 ML SYRINGE IVP PRN (00:10)
[2021-11-08] MEDS ORDERED: Insulin Human Regular 5 UNIT in 0.9 % Sodium Chloride 10 ML IV ONE (00:45)
[2021-11-08] MEDS: Piperacillin/Tazobactam 3.375 GM in 0.9 % Sodium Chloride Mini Bag 100 ML IVPB SCH (01:57)
[2021-11-08 02:34] LABS: Basophils % 0.2 %; Hematocrit 28.6 % (37.5-50.1); Hemoglobin 8.9 g/dL (12.9-16.9); Immature Granulocytes % 2.5 % (0-4); Lymphocytes # 0.4 K/mcL (0.6-4.6); Lymphocytes % 2.5 %; Mean Corpuscular HGB Conc 31.1 g/dL (31.6-35.5); Mean Corpuscular Hemoglobin 29.6 pg (28.0-33.3); Mean Platelet Volume 11.6 fL (9.4-12.4); Monocytes # 0.4 K/mcL (0.0-1.3); Monocytes % 2.5 %; Neutrophils # 14.2 K/mcL (1.6-8.9); Nucleated Red Blood Cells 2.7 /100 WBC (0); Platelet Count 237 K/mcL (140-400); Red Blood Count 3.01 M/mcL (4.19-5.50); Red Cell Distribution Width 14.9 % (11.5-14.5); Segmented Neutrophils % 92.3 %; White Blood Count 15.4 K/mcL (4.3-11.1)
[2021-11-08] MEDS: *HR* Dextrose 50 % in Water (Syg) 50 ML SYRINGE IVP PRN ×2 (02:53→06:18)
[2021-11-08 03:10] LABS: Blood Urea Nitrogen > 130 mg/dL (8-23); Calcium 9.2 mg/dL (8.6-10.3); Carbon Dioxide 15 mEq/L (23-29); Chloride 118 mEq/L (98-107); Glucose 71 mg/dL (70-105); Magnesium 2.2 mg/dL (1.6-2.6); Potassium 3.4 mEq/L (3.5-5.1); Sodium 150 mEq/L (136-145); eGFR For African Americans 22 (> 60); eGFR For Non-African Americans 18 (> 60)
[2021-11-08] MEDS: Ipratropium 1 PUFF INHALER IH SCH ×5 (04:19→20:44)
[2021-11-08] MEDS: hydrALAZINE 25 MG TABLET PO SCH (04:40)
[2021-11-08] MEDS: Dexmedetomidine HCl 400 MCG/100 ML MLS IVC SCH ×2 (05:15→21:34)
[2021-11-08] MEDS: Potassium Chloride 20 MEQ in D5% in Water 1,000 ML IVC SCH ×2 (05:46→13:36)
[2021-11-08 06:09] LABS: INR 4.9
[2021-11-08 06:10] LABS: Prothrombin Time 53.8 Seconds (9.4-12.1)
[2021-11-08 10:17] LABS: Albumin 3.2 g/dL (3.5-5.7); Albumin/Globulin Ratio 1.1 (1.1-2.2); Bilirubin,Direct 0.1 mg/dL (0.0-0.2); Bilirubin,Indirect 0.9 mg/dL (0.0-1.0); Globulin 2.9 g/dL (2.4-3.5); Total Protein 6.1 g/dL (6.4-8.9)
[2021-11-08] MEDS: Aspirin 81 MG TAB.CHEW PO SCH (10:53)
[2021-11-08] MEDS: carvediloL 6.25 MG TABLET PO SCH ×2 (10:53→19:24)
[2021-11-08] MEDS: Cholecalciferol (D-3) 1,000 UNIT (25MCG) TABLET PO SCH (10:54)
[2021-11-08] MEDS: Doxycycline 100 MG CAPSULE PO SCH (10:54)
[2021-11-08] MEDS: Multivit/Ca/Min/Fe/FA 1 TAB TABLET PO SCH (10:54)
[2021-11-08] MEDS: Insulin LISPRO 300 UNITS/3 ML VIAL SUBQ SCH ×3 (13:49→23:44)
[2021-11-08] MEDS ORDERED: 0.9 % Sodium Chloride 250 ML ONE (14:26)
[2021-11-08] MEDS ORDERED: *HR* FentaNYL (PF) 100 MCG/2 ML VIAL IVP PRN (15:39)
[2021-11-08] MEDS: *HR* LORazepam 2 MG/ML VIAL IVP PRN ×3 (18:28→23:29)
[2021-11-08 19:05] VITALS: BP 122/63; PULSE 85; TEMP 98.3
[2021-11-08 21:56] VITALS: O2SAT 88
[2021-11-09] MEDS: *HR* LORazepam 2 MG/ML VIAL IVP PRN (02:00)
== END 2021-11-09 04:00 | disposition expired | DRG 871 ==
LOC: SUATTDRO → 3NENU 16:06 → EMEROOARM 16:06 → SUATTDRO 20:52 → 3NENU 22:40
PROVIDERS: ADMIT Family Medicine; ATTEND Internal Medicine